=== PATIENT | male | born 1995 | race African-American/Black ===

== ENCOUNTER 2020-07-27 09:55 | Emergency (ER) | payer MEDICAID ==
[~2020-07-27] VITALS: Ht 167.6 cm; Wt 72.6 kg
[2020-07-27 10:08] VITALS: BP_SYST 133
[2020-07-27] MEDS ORDERED: IBUPROFEN 600 MG TABLET PO ONE (10:45)
[2020-07-27 11:13] VITALS: BP_SYST 132
== END 2020-07-27 11:16 | disposition home or self-care (01) ==
LOC: SED 09:55
DX: S93.401A Sprain of unspecified ligament of right ankle, initial encounter (principal); M21.41 Flat foot [pes planus] (acquired), right foot; X50.9XXA Other and unspecified overexertion or strenuous movements or postures, initial encounter; Y93.89 Activity, other specified; Y92.89 Other specified places as the place of occurrence of the external cause; Y99.8 Other external cause status
CPT/HCPCS: 99283